=== PATIENT | female | born 1945 | race Caucasian/White ===

== ENCOUNTER 2020-10-10 03:24 | Inpatient (IN) | payer MEDICARE ==
[2020-10-10] MEDS ORDERED: DOPAMINE/D5W 0 MG/0 ML BAG IV ONE (03:53)
[2020-10-10 04:03] LABS: Absolute Lymphocytes (CBC) 7.4 K/uL (0.7-4.9); Basophils % 0.5 % (0-1.3); Hematocrit 42.7 % (36.0-45.0); Lymphocytes % 24.9 % (15.3-44.8); MPV 8.9 fL (7.6-11.3); RBC Red Blood Cell Count 4.18 M/uL (3.86-4.86)
[2020-10-10 04:26] LABS: Albumin 2.8 g/dL (3.4-5.0); Bilirubin Direct 0.1 mg/dL (0-0.2); Bilirubin Total 0.3 mg/dL (0.2-1.0); Protein, Total 6.3 g/dL (6.4-8.2); Troponin (Emerg Dept Use Only) 0.07 ng/mL (0.0-0.045)
[2020-10-10 04:27] LABS: Protime INR 1.08
[2020-10-10 04:32] LABS: Magnesium 2.5 mg/dL (1.8-2.4); Potassium 4.7 mmol/L (3.5-5.1)
[2020-10-10 04:37] LABS: Blood Morphology Comment NOT SEEN (NOT SEEN); Platelet Estimate ADEQ
[2020-10-10 04:54] LABS: Arterial Blood Carboxyhemoglob 3.7 % (0-1.5); Blood Gas Oxyhemoglobin 94.7 % (94-97); Blood O2 Saturation 99.4 % (92-98.5)
--- NOTE | 2020-10-10 06:44 | EDPHYS ---
Physician Documentation [facility] Name: Ellie Herrera Age: 74 yrs Sex: Female : 1945 Arrival Date: 10/10/2020 Time: 03:25 Bed 3 Private MD: ED Physician Henrik Patricio HPI: 10/10 05:18 This 74 yrs old Female presents to ER via EMS with complaints of CPR. tw4 05:18 Preceding the arrest, the patient was found down. The arrest occurred at home. tw4 Pre-hospital course: The arrest was witnessed Bystanders at the scene performed CPR. EMS care prior to arrival: initiation of ACLS, peripheral IV, intubation ACLS details: Initial rhythm was bradycardia. The presenting rhythm is asystole. Airway: oral intubation, Medications given by EMS prior to arrival - Epinephrine IV x 1 doses, Atropine IV x 1 doses. The patient has not experienced similar symptoms in the past. Historical: - Allergies: 04:16 Unable to obtain; lp1 - Home Meds: 04:16 Unable to obtain [Active]; lp1 - PMHx: 04:16 Unable to obtain; lp1 - PSHx: 04:16 Unable to obtain; lp1 - Immunization history:: Adult Immunizations unknown. - Social history:: Smoking status: unknown. - Code Status:: DNAR. ROS: 05:18 Unable to obtain ROS due to comatose state. tw4 Exam: 05:18 Constitutional: The patient appears comatose. tw4 05:18 Eyes: Pupils: are fixed and dilated. 05:18 Cardiovascular: Pulses: Pulses are 2+ in left femoral artery and left carotid pulse. 05:18 Respiratory: intubated. Vital Signs: 03:29 BP 228 / 93; Pulse 128; Resp 19 A; Pulse Ox 96% on 15% BVM; Weight 83.91 kg; lp1 03:35 BP 206 / 69; Pulse 75; Resp 17 A; Pulse Ox 100% on 15% BVM; lp1 03:45 BP 219 / 77; Pulse 68; Resp 15 A; Pulse Ox 100% on 15% BVM; lp1 03:55 BP 246 / 92; Pulse 68; Resp 15 A; Pulse Ox 100% on 15% BVM; lp1 04:10 BP 225 / 98; Pulse 76; Resp 17; Pulse Ox 100% on 100% FiO2 ETT vent; lp1 04:35 BP 227 / 94; Pulse 79; Resp 19; Temp 94.6(C); Pulse Ox 100% on 100% FiO2 ETT vent; lp1 04:55 BP 222 / 94; Pulse 81; Resp 21; Temp 95.3(C); Pulse Ox 100% on 100% FiO2 ETT vent; jb4 05:25 BP 213 / 75; Pulse 75; Resp 16; Temp 95.4(C); Pulse Ox 100% on 100% FiO2 ETT vent; jb4 05:50 BP 205 / 77; Pulse 71; Resp 21; Temp 95.7; Pulse Ox 100% on 100% FiO2 ETT vent; jb4 06:15 BP 211 / 77; Pulse 69; Resp 20; Temp 96.0(C); Pulse Ox 96% on 40% FiO2 ETT vent; jb4 06:40 BP 215 / 75; Pulse 69; Resp 20; Temp 96.3(C); Pulse Ox 94% on 40% FiO2 ETT vent; jb4 07:30 BP 240 / 85; Pulse 73; Resp 21; Temp 97.3; Pulse Ox 96% ; bp MDM: 03:57 Patient medically screened. tw4 10/10 03:49 Order name: Basic Metabolic Panel 1 10/10 03:49 Order name: CBC with Diff; Complete Time: 04:38 1 10/10 04:38 Interpretation: Normal except: WBC 29.8; MCV 102.2; MN% 3.2; MCHC 31.3; NEUT A 21.1; tw4 LYMA 7.4. 10/10 03:49 Order name: LFT's; Complete Time: 04:38 1 10/10 04:38 Interpretation: Normal except: A/G 0.8; ALB 2.8; TP 6.3; ALT 95; AST 151. tw4 10/10 03:49 Order name: Magnesium; Complete Time: 04:38 lp1 10/10 04:38 Interpretation: Normal except: MG 2.5. tw4 10/10 03:49 Order name: NT PRO-BNP; Complete Time: 04:38 1 10/10 04:39 Interpretation: Normal except: NT PRO-BNP 508. tw4 10/10 03:49 Order name: PT-INR; Complete Time: 04:38 [facility] 1212 04:39 Interpretation: Normal except: PT 12.7. tw4 10/10 03:49 Order name: Troponin (emerg Dept Use Only); Complete Time: 04:38 [facility] 10/10 04:39 Interpretation: Normal except: TROPED 0.07. tw4 10/10 03:49 Order name: Basic Metabolic Panel; Complete Time: 04:38 EDMS 10/10 04:39 Interpretation: Normal except: NA 146; CRE 1.82; BUN 28; GLUC 345; CL 110; GFR 27; CA tw4 14.9. 12 03:49 Order name: D-Dimer; Complete Time: 04:38 [facility] 10/10 04:39 Interpretation: Abnormal: D-DIMER [id number]. [facility] 10/10 03:49 Order name: Lactate; Complete Time: 04:38 [facility] 12 04:39 Interpretation: Abnormal: LAC 11.6. 4 10/10 03:49 Order name: Blood Culture Adult (2) [facility] 10/10 04:15 Order name: Manual Differential; Complete Time: 04:38 EDNE 12 04:40 Interpretation: Normal except: BANDS [F] 8. [facility] 10/10 04:37 Order name: ABG; Complete Time: 05:27 [facility] 10/10 04:50 Order name: Glucose, Ancillary Testing; Complete Time: 05:27 EDNE 12 06:15 Order name: SARS-COV-2 RT PCR; Complete Time: 05:49 EDNE 10/10 08:18 Order name: Lactate Sepsis 2 HR Follow-up; Complete Time: 05:49 EDNE 10/10 12:17 Order name: Glucose, Ancillary Testing; Complete Time: 05:49 EDMS 10/10 12:55 Order name: Urinalysis; Complete Time: 05:49 EDMS 10/10 13:00 Order name: Procalcitonin; Complete Time: 05:49 EDMS 12 13:11 Order name: Blood Culture EDNE 10/10 13:16 Order name: Urine Microscopic Only; Complete Time: 05:49 EDMS 10/10 13:40 Order name: Creatine Phosphokinase; Complete Time: 05:49 EDMS 10/10 13:40 Order name: CKMB Creatine Kinase MB; Complete Time: 05:49 EDMS 12/12 13:40 Order name: Troponin I; Complete Time: 05:49 EDMS 1212 18:23 Order name: Glucose, Ancillary Testing; Complete Time: 05:49 EDMS 1212 21:31 Order name: Glucose, Ancillary Testing; Complete Time: 05:49 EDMS 12 23:05 Order name: Creatine Phosphokinase; Complete Time: 05:49 EDMS 12 23:05 Order name: CKMB Creatine Kinase MB; Complete Time: 05:49 EDMS 12 23:05 Order name: Troponin I; Complete Time: 05:49 EDMS 13 04:49 Order name: CBC with Automated Diff; Complete Time: 05:49 EDMS 12 03:49 Order name: XRAY Chest (1 view); Complete Time: 05:49 lp1 12 03:49 Order name: EKG; Complete Time: 03:50 lp1 12 03:49 Order name: Cardiac monitoring; Complete Time: 04:32 lp1 12 03:49 Order name: EKG - Nurse/Tech; Complete Time: 04:32 lp1 12 03:49 Order name: IV Saline Lock; Complete Time: 04:35 lp1 12 03:49 Order name: Labs collected and sent; Complete Time: 04:35 lp1 12 03:49 Order name: O2 Per Protocol; Complete Time: 04:35 lp1 12 03:49 Order name: O2 Sat Monitoring; Complete Time: 04:35 lp1 12 03:49 Order name: Camp; Complete Time: 04:32 lp1 12 16:35 Order name: CT; Complete Time: 05:49 EDMS 12 17:23 Order name: US; Complete Time: 05:49 EDMS 10/11 04:49 Order name: Protime (+INR); Complete Time: 05:49 EDMS 13 05:16 Order name: Comprehensive Metabolic Panel; Complete Time: 05:49 EDMS 10/11 05:16 Order name: Magnesium; Complete Time: 05:49 EDMS 13 08:37 Order name: CT EDMS Administered Medications: 03:27 Drug: EPINEPHrine 0.1mg/mL 1:10,000 1 mg Route: IVP; Site: right antecubital; lp1 04:00 Follow up: Response: No adverse reaction lp1 03:28 Drug: Sodium Bicarbonate 1 amp Route: IVP; Site: right antecubital; lp1 04:00 Follow up: Response: No adverse reaction lp1 03:35 Drug: EPINEPHrine 0.1mg/mL 1:10,000 1 mg Route: IVP; Site: right antecubital; lp1 04:00 Follow up: Response: No adverse reaction lp1 03:35 Drug: Atropine 1 mg Route: IVP; Site: right antecubital; lp1 04:00 Follow up: Response: No adverse reaction lp1 03:45 Drug: Calcium Chloride 1 grams Route: IVP; Site: right antecubital; lp1 04:00 Follow up: Response: No adverse reaction lp1 Disposition: 10/10/20 06:43 Hospitalization ordered by Beny Montejo for Inpatient Admission. Preliminary diagnosis is Cardiac arrest. - Bed requested for [facility] ER HOLD. - Status is Inpatient Admission. jl7 - Condition is Critical. - Problem is an ongoing problem. - Symptoms are unchanged. Signatures: Dispatcher [employer] EDMS Kera Mota, RN RN lp1 Mina Tripathi, PROJECT MANAGER INTERIOR DESIGN-C PROJECT MANAGER INTERIOR DESIGN-Cla1 Norm Beltran RN RN jl7 Andrez Chase RN RN Stanley Loza, RN RN Henrik Alexis MD MD tw4 Corrections: (The following items were deleted from the chart) 14:08 06:43 Hospitalization Ordered by Beny Montejo DO for Inpatient Admission. Preliminary bp diagnosis is Cardiac arrest. Bed requested for Telemetry/MedSurg (Inpatient). Status is Inpatient Admission. Condition is Critical. Problem is an ongoing problem. Symptoms are unchanged. tw4 10/11 12:25 10/10 14:08 10/10/2020 06:43 Hospitalization Ordered by Beny Montejo DO for Inpatient jl7 Admission. Preliminary diagnosis is Cardiac arrest. Bed requested for [facility] ER HOLD. Status is Inpatient Admission. Condition is Critical. Problem is an ongoing problem. Symptoms are unchanged. bp
--- NOTE | 2020-10-10 06:44 | ER ---
Nurse's Notes [facility] Name: Ellie Herrera Age: 74 yrs Sex: Female : 1945 Arrival Date: 10/10/2020 Time: 03:25 Bed 3 Private MD: Diagnosis: Cardiac arrest Presentation: 10/10 03:23 Chief complaint: EMS states: 911 call by patient for chest pain, on arrival of EMS, lp1 patient found unresponsive, cardiac arrest; CPR started at about 0150 by EMS; ROSC x3; On arrival to ED, patient in asystole; Total of x7 Epi, x2 Bicarb, x4 Calcium Chloride administered. 03:23 Care prior to arrival: Oral intubation, CPR via thumper and is still in progress lp1 Medication(s) given: Normal saline infusion, 1000 mL, IV initiated. 18 GA, in the right antecubital area, Glucose check: 161 Oxygen administered. via AMBU bag. Compressions began at 03:23. 03:23 Method Of Arrival: EMS: [facility] lp1 03:23 Acuity: LOUISE 1 lp1 03:25 Acuity: LOUISE 1 dm5 04:32 Coronavirus screen: unable to obtain; intubated patient. Ebola Screen: No symptoms or lp1 risks identified at this time. Initial Sepsis Screen: Does the patient meet any 2 criteria? No. Patient's initial sepsis screen is negative. Does the patient have a suspected source of infection? No. Patient's initial sepsis screen is negative. Risk Assessment: Do you want to hurt yourself or someone else? Unable to obtain. Onset of symptoms was October 10, 2020 at 01:50. Historical: - Allergies: 04:16 Unable to obtain; lp1 - Home Meds: 04:16 Unable to obtain [Active]; lp1 - PMHx: 04:16 Unable to obtain; lp1 - PSHx: 04:16 Unable to obtain; lp1 - Immunization history:: Adult Immunizations unknown. - Social history:: Smoking status: unknown. - Code Status:: DNAR. Screenin:32 Abuse screen: Denies threats or abuse. Denies injuries from another. Nutritional lp1 screening: No deficits noted. Tuberculosis screening: No symptoms or risk factors identified. Fall Risk Total Velásquez Fall Scale indicates High Risk Score (45 or more points). Fall prevention measures have been instituted. Side Rails Up X 2 Placed Close to Nursing Station Frequent Obs/Assessments Occuring. Assessment: 03:23 CPR assessment: unresponsive, no respiratory effort, intubated, Ambu ventilation, pale. lp1 03:25 General: Appears Unresponsive . Behavior is unresponsive. Vomitus noted to MELANIE nares jb4 and in the mouth. . Neuro: Level of Consciousness is unresponsive, Pupils are dilated, non-reactive. Cardiovascular: Rhythm is asystole. Respiratory: Airway via oral intubation. Derm: Skin is intact, Skin is dry, Skin is normal, Skin temperature is cool. 03:29 Cardiac rhythm is Sinus Rhythm. lp1 04:32 Reassessment: Reassessment: PT remains unresponsive. Pupils remain dilated an jb4 unreactive. Pt remains intubated with equal chest rise and fall and bilateral crackles. Is in sinus Rhythm. 05:01 Reassessment: No changes from previously documented assessment. jb4 05:30 Reassessment: Pt remains unresponsive, and intubated with MELANIE crackles and equal chest jb4 rise and fall. Pulse is strong, sinus rhythm. Pupils are dilated, and non-reactive. Provider is speaking with the family at the bedside. 05:44 Reassessment: Spoke with Pt's sone Chandana Herrera. Informed that the pt does have a jb4 living will and power of business analytics analyst. Son states " I am going home to find those documents and will bring them back." Son's contact information is [phone]. 06:00 Reassessment: No changes from previously documented assessment. jb4 06:27 Reassessment: Pt remains unresponsive, and intubated with MELANIE crackles and equal chest jb4 rise and fall. Pulse is strong, sinus rhythm. Pupils are dilated, and non-reactive. Provider is speaking with the family at the bedside. Current Vent settings: A/C 18, PEEP 5.0, FiO2 40%. 07:00 Reassessment: RECD REPORT FROM DREAD GUZMAN. 74YO WF S/P PROLONGED CPR, REMAINS bp NONRESPONSIVE DESPITE ROSC. PT INTUBATED IN FIELD. ADMIT IN PROCESS. PUPILS FIXED AND DILATED. SON IS UNCERTAIN OF CODE STATUS, BUT LOOKING FOR PAPERS AT HOME. 07:30 Reassessment: PER FAMILY, PT HAS OUT OF HOSPITAL DNR. bp 10:00 Reassessment: PT MOVED TO ER HOLD, SEE [facility]. bp 10/11 07:22 Reassessment: Awaiting family arrival, will call Dr. Montejo once family members are jl7 present. 09:37 Reassessment: Nicole Gift case # [id number]. jl7 Vital Signs: 10/10 03:29 BP 228 / 93; Pulse 128; Resp 19 A; Pulse Ox 96% on 15% BVM; Weight 83.91 kg; lp1 03:35 BP 206 / 69; Pulse 75; Resp 17 A; Pulse Ox 100% on 15% BVM; lp1 03:45 BP 219 / 77; Pulse 68; Resp 15 A; Pulse Ox 100% on 15% BVM; lp1 03:55 BP 246 / 92; Pulse 68; Resp 15 A; Pulse Ox 100% on 15% BVM; lp1 04:10 BP 225 / 98; Pulse 76; Resp 17; Pulse Ox 100% on 100% FiO2 ETT vent; lp1 04:35 BP 227 / 94; Pulse 79; Resp 19; Temp 94.6(C); Pulse Ox 100% on 100% FiO2 ETT vent; lp1 04:55 BP 222 / 94; Pulse 81; Resp 21; Temp 95.3(C); Pulse Ox 100% on 100% FiO2 ETT vent; jb4 05:25 BP 213 / 75; Pulse 75; Resp 16; Temp 95.4(C); Pulse Ox 100% on 100% FiO2 ETT vent; jb4 05:50 BP 205 / 77; Pulse 71; Resp 21; Temp 95.7; Pulse Ox 100% on 100% FiO2 ETT vent; jb4 06:15 BP 211 / 77; Pulse 69; Resp 20; Temp 96.0(C); Pulse Ox 96% on 40% FiO2 ETT vent; jb4 06:40 BP 215 / 75; Pulse 69; Resp 20; Temp 96.3(C); Pulse Ox 94% on 40% FiO2 ETT vent; jb4 07:30 BP 240 / 85; Pulse 73; Resp 21; Temp 97.3; Pulse Ox 96% ; bp ED Course: 03:25 Patient arrived in ED. am2 03:25 Maintain EMS IV. Dressing intact. Good blood return noted. Site clean \\T\\ dry. Gauge \\T\\ lp 1 site: 18g to R AC. 03:[address] from EMS, 7.0 ETT at 22 at the teeth. lp1 03:30 Patient has correct armband on for positive identification. Bed in low position. Call lp1 light in reach. Side rails up X2. desk monitor on. Pulse ox on. NIBP on. 03:39 Assisted provider with central line placement. Set up central line tray. Triple lumen lp1 line placed in right femoral. Line placed by Henrik Patricio MD Placement verified by blood return, Dressed with Tegaderm, Blood was collected. Patient tolerated well. 03:45 Arm band placed on. lp1 03:54 NGT: inserted 14 Fr. via left nare. verified placement of air over stomach, verified lp1 return of gastric contents, Placement verified by X-ray, to intermittent suction. Returned gastric contents. 03:55 Henrik Patricio MD is Attending Physician. tw4 04:12 Initiated transfer with Arminda Burns at [facility]. tt3 04:14 Triage completed. dm5 04:20 Mi Greene, RN is Primary Nurse. dm5 04:29 XRAY Chest (1 view) In Process Unspecified. EDMS 04:31 Arminda Posadasumaker called back and stated they had to decline due to capacity. She also tt3 stated that the [facility] and [facility] are at capacity as well. 04:33 3-way catheter inserted, using sterile technique, 16 Fr. oe 04:34 Notified ED physician of a critical lab result(s). D-Dimer [id number]; Lactate 11.6; Calcium lp1 14.9. 04:36 Initiated transfer at [facility] with Tea. tt3 04:58 Freddie Potter, RN is Primary Nurse. jb4 05:15 First set of blood cultures drawn by ri, Second set of blood cultures drawn by lab jb4 staff. 05:54 Tea from [facility] called back and stated she checked all [facility] and they are all at tt3 capacity. 06:08 Initiated with Alison at [facility]. Stated they had no ICU beds. tt3 06:10 Initiated transfer at [facility] with Yessenia. Stated she would check the [facility] and tt3 call back. 06:32 Yessenia from [facility] called back and stated they had to decline due to no ICU beds. Stated that tt3 none of their campuses had ICU beds available and could try checking after 0800. 06:43 Beny Montejo DO is Hospitalizing Provider. tw4 07:35 Primary Nurse role handed off by Freddie Potter, RN bp 07:35 Stanley Nieto, RN is Primary Nurse. bp 10/11 07:00 Patient admitted, IV remains in place. intact, No redness/swelling at site. jl7 07:22 Report received from MEGAN Cote. jl7 Administered Medications: 10/10 03:27 Drug: EPINEPHrine 0.1mg/mL 1:10,000 1 mg Route: IVP; Site: right antecubital; lp1 04:00 Follow up: Response: No adverse reaction lp1 03:28 Drug: Sodium Bicarbonate 1 amp Route: IVP; Site: right antecubital; lp1 04:00 Follow up: Response: No adverse reaction lp1 03:35 Drug: EPINEPHrine 0.1mg/mL 1:10,000 1 mg Route: IVP; Site: right antecubital; lp1 04:00 Follow up: Response: No adverse reaction lp1 03:35 Drug: Atropine 1 mg Route: IVP; Site: right antecubital; lp1 04:00 Follow up: Response: No adverse reaction lp1 03:45 Drug: Calcium Chloride 1 grams Route: IVP; Site: right antecubital; lp1 04:00 Follow up: Response: No adverse reaction lp1 Outcome: 06:43 Decision to Hospitalize by Provider. tw4 10/11 07:00 Admitted to ER Hold. Please see [facility] for further documentation. jl7 critical Discharge instructions given to family, Instructed on the need for admit, Demonstrated understanding of instructions. 12:25 Patient left the ED. jl7 Signatures: Dispatcher [employer] EDMS Mi Greene, RN RN dm5 Kera Mota RN RN lp1 Freddie Potter, RN RN Luis Bañuelos Jahala, RN RN jl7 Shayy Galarza Jose RN RN ja1 Stanley Nieto RN RN bp Wadley, Terrence, MD MD tw4 Dread Davis tt3 Corrections: (The following items were deleted from the chart) 12/12 04:25 03:23 Care prior to arrival: Oral intubation, CPR via thumper and is still in progress lp1 IV initiated. 18 GA, in the right antecubital area, Glucose check: 161 Oxygen administered. via AMBU bag lp1 04:31 03:29 BP 228 / 93; Pulse 128bpm; Resp 22bpm; Assisted; Pulse Ox 92% 02 15% BVM; 83.91 lp1 kg; lp1 04:57 03:25 General: Appears unresponsive. Behavior is unresponsive. Vomitus noted to MELANIE jb4 nares and in the mouth.. dm5 04:57 03:25 Neuro: Level of Consciousness is unresponsive, Pupils are dilated, non-reactive, jb4 dm5 :57 03:25 Cardiovascular: Rhythm is asystole dm5 jb4 57 03:25 Respiratory: Airway via oral intubation dm5 jb4 04:57 03:25 Derm: Skin is intact, Skin is dry, Skin is normal, Skin temperature is cool dm5 jb4 04:57 04:32 Reassessment: PT remains unresponsive. Pupils remain dilated an unreactive. Pt jb4 remains intubated with equal chest rise and fall and bilateral crackles. dm5 06:18 06:10 Initiated transfer at [facility] with Yessenia. tt3 tt3 06:28 05:30 Reassessment: Pt remains unresponsive, and intubated with MELANIE crackles and equal jb4 chest rise and fall. Pulse is strong, sinus rhythm. Pupils are dilated, and non-reactive. Provider is speaking with the family at the bedside. jb4 07:00 03:54 NGT: inserted 14 Fr. via right nare. verified placement of air over stomach, lp1 verified return of gastric contents, Placement verified by X-ray, to intermittent suction. Returned gastric contents. lp1
--- NOTE | 2020-10-10 07:51 | P.HP ---
Certification for Inpatient Patient admitted to: Inpatient With expected LOS: >2 Midnights Patient will require the following post-hospital care: Hospice Practitioner: I am a practitioner with admitting privileges, knowledge of patient current condition, hospital course, and medical plan of care. Services: Services provided to patient in accordance with Admission requirements found in Title 42 Section 412.3 of the Code of Federal Regulations Patient History Date of Service: 10/10/20 Primary Care Provider: Dr. Beltran; Cardiology-Dr. Bustamante Reason for admission: Cardiac arrest History of Present Illness: 74-year-old female with history of diabetes mellitus type 2, hypertension, CAD with prior stents, hyperlipidemia, atrial fibrillation on blood thinner, peripheral vascular disease with prior stents to the lower extremity and kidney, tobacco abuse, and COPD. Most of the history came from the ER physician and staff. I was able to discuss with his son in detail. Son does not know much about the events earlier. Son reports patient had been doing well. Son last saw the patient around [facility]. Son reports patient has significant heart disease. Sees cardiology in [place]-Dr. Bustamante. ER reports patient called EMS due to chest pain. This was around 1:50 a.m. EMS arrived to the house with forced entry. Patient was found unresponsive. Patient was asystole. CPR/ACLS started. Patient intubated in the field. Multiple rounds of medication, CPR performed. Patient had return to circulation in route. Then was since asystole again. By the time she arrived to the hospital there was return of circulation. She arrived at the hospital around 3:23 a.m. In the ER patient had elevated blood pressures 228/93, heart rate 128, respirations 19. Patient placed on ventilator. Patient required CPR again. Now currently stable on ventilator. Vital signs 199/78. Pulse 70. Respirations 15. White count 29.8, hemoglobin 13.4. Platelet count 186. 8 bands, 21 absolute neutrophil count. Lactic acid 11.6. D-dimer elevated at 95,000. Sodium 146, potassium 4.7. Chloride 110, CO2 21. BN of 28, creatinine 1.82 with a GFR of 27. Glucose 342. AST elevated at 151, ALT 95. Troponin 0.07. COVID 19 test negative. Chest x-ray performed. CT head pending. ABG 7.28 pH, P CO2 of 38. Bicarb 17.3. Pupils fixed and dilated. Reflexes to the lower extremity showed no response. Patient does not respond to pain or stimulation. No sedation has been given. Emergency room tried to transfer patient to [facility]. Multiple attempts to multiple facilities were done. No available bed at multiple hospitals. Patient admitted here for further evaluation and treatment. When I saw the patient ER, patient remained on the ventilator. Blood pressure elevated. Vital signs otherwise stable. Patient unresponsive. Spoke with son in detail. Son reports patient has multiple medical problems. She has had stents to the heart, lower extremity, and kidneys. Son also reports patient is on blood thinners. Initial evaluations shows coffee-ground emesis from NG tube. Home medications list reviewed: No - Past Medical/Surgical History Diabetic: Yes -: Diabetes mellitus type 2 -: Hypertension -: Hyperlipidemia -: CAD with prior stents -: Peripheral vascular disease, stents-LE/Kidney -: Atrial fibrillation -: Chronic anti coagulation therapy -: COPD -: Tobacco abuse -: Stents to the heart, lower extremity, kidney Psychosocial/ Personal History: Patient is a . She lives by herself. - Family History Family History: Reviewed- Non-Contributory - Social History Smoking Status: Heavy Tobacco smoker (>10 cigarettes/day) Alcohol use: No CD- Drugs: No Caffeine use: No Place of Residence: Home Review of Systems is unable to be obtained Physical Examination - Physical Exam General: Other (Patient intubated. Patient non sedated. No response to pain, stimuli.) HEENT: Other (Pupils fixed and dilated. NG tube in place. Patient on ventilator.) Neck: Supple Respiratory: Crackles/rales (Crackles bilateral), Expiratory wheezes (Wheezing noted bilateral) Cardiovascular: Regular rate/rhythm Gastrointestinal: Normal bowel sounds, Non-distended Musculoskeletal: Other (Cool extremities. No response to pain or stimuli.) Integumentary: Other (Cool extremities especially to the lower extremity.) Neurological: Other (No upgoing or downgoing reflexes noted. Pupils fixed and dilated.), Abnormal reflexes Other Physical/Emotional Findings: NG tube shows coffee-ground emesis. Stool noted in diaper. - Studies Laboratory Data (last 24 hrs) 10/10/20 03:53: PT 12.7 H, INR 1.08 10/10/20 03:53: WBC 29.8 H*, Hgb 13.4, Hct 42.7, Plt Count 196 10/10/20 03:53: Sodium 146 H, Potassium 4.7, BUN 28 H, Creatinine 1.82 H, Glucose 345 H, Magnesium 2.5 H, Total Bilirubin 0.3, AST 151 H, ALT 95 H, Alkaline Phosphatase 105 Assessment and Plan - Plan Impression: Chest pain secondary to cardiac arrest with asystole, prolonged CPR/ACLS multiple times with return of circulation, acute respiratory failure with hypoxia, suspected aspiration pneumonia, multiorgan failure-liver/kidney, and now suspect anoxic brain injury/encephalopathy Acute respiratory failure with hypoxia suspect aspiration pneumonia with COPD exacerbation Coffee-ground emesis likely related to above with possible GI bleed without anemia Hypertension uncontrolled CAD with prior stents Peripheral vascular disease with prior stents to the lower extremity and kidney Suspected atrial fibrillation on chronic anti coagulation therapy Diabetes mellitus type 2 with hyperglycemia Hyperlipidemia Tobacco abuse Plan: Chest pain secondary to cardiac arrest with asystole, prolonged CPR/ACLS multiple times with return of circulation, acute respiratory failure with hypoxia, suspected aspiration pneumonia, multiorgan failure-liver/kidney, and now suspect anoxic brain injury/encephalopathy: Events reviewed in detail. Patient was to be transferred to [facility] but no beds available. Patient admitted at this time. Will continue with IV fluids. Continue with vent protocol. Will consult pulmonology, cardiology and neurology. Will start IV antibiotic therapy, IV steroid. Respiratory to maintain adequate oxygen status. Will provide IV medication for elevated blood pressure. Will hold off on anti coagulation therapy as coffee-ground emesis noted and patient with history of taking blood thinners. Will need to get a list of her medications from home. Will order echocardiogram, CT head, and EEG. No response to pain stimuli. Pupils fixed and dilated. Suspect anoxic brain injury due to prolonged CPR. Spoke at length with son who understands the patient is in critical condition. Prognosis very poor. Advanced care directives address in detail-30 min. This included advanced directives. Patient now on do not resuscitate. Son reports patient would not want to be in this condition. Will discuss with pulmonology, cardiology and neurology. If no significant improvement or change, will need to consider withdrawal of care. Son will discuss with other family-sister. Await recommendations by specialist. Acute respiratory failure with hypoxia suspect aspiration pneumonia with COPD exacerbation: Will start IV antibiotic therapy. Blood, sputum, urine culture results pending. COVID negative. Will start IV steroids. Will provide medication for COPD. Continue vent protocol. Coffee-ground emesis likely related to above with possible GI bleed without anemia: Will start Protonix. Will need to monitor this closely. Will hold off on anti coagulation therapy due to risk of bleeding. Will monitor blood count closely. Hypertension uncontrolled: Will provide medication IV. CAD with prior stents: Will need to obtain home medication. Peripheral vascular disease with prior stents to the lower extremity and kidney: Monitor electrolytes closely. Electrolyte protocol in place. Suspected atrial fibrillation on chronic anti coagulation therapy: Will need to obtain home medication. Son reports patient on blood thinner. Hold blood thinner at this time due to possible GI bleed. Diabetes mellitus type 2 with hyperglycemia: Will provide sliding scale. Accu- Cheks in place. May need to change IV fluids to D5 normal if blood sugar drops. Acute renal failure likely underlying chronic renal disease stage IV: Will monitor this closely. Will obtain renal ultrasound. Elevated liver function-acute liver failure likely related to above: Will monitor renal function closely. Will obtain liver ultrasound. Hyperlipidemia: Obtain home medication Tobacco abuse: Son reports patient with heavy tobacco abuse. Discharge Plan: Other (Inpatient hospice) Plan to discharge in: Greater than 2 days - Advance Directives Does patient have a Living Will: No Does patient have a Durable POA for Healthcare: No - Code Status/Comfort Care Code Status Assessed: Yes (Patient now DNR) Time Spent Managing Pts Care (In Minutes): 65
--- NOTE | 2020-10-10 09:38 | RAD REPORT ---
EXAM DESCRIPTION: Carla Single View10/10/2020 4:29 am CLINICAL HISTORY: Cardiac arrest COMPARISON: none FINDINGS: Endotracheal tube with its tip 4.5 centimeters above the juliette. Nasogastric tube is pres ent within the stomach. Mild to moderate bilateral interstitial lung opacities probably pulmonary edema. Heart is normal size
[2020-10-10 10:09] VITALS: BMI 30.7
[2020-10-10] MEDS: PANTOPRAZOLE 40 MG INJ IVP SCH ×2 (11:26→21:00)
[2020-10-10] MEDS ORDERED: SODIUM CHLORIDE 0.9% 10ML INJ IV PRN (11:26)
[2020-10-10] MEDS: INSULIN -REGULAR HUMAN 50 UNIT/0.5 ML ML SQ SCH ×4 (11:26→21:00)
[2020-10-10] MEDS: NA CHLORIDE 0.9% 1,000 ML IV SCH ×2 (11:26→21:26)
[2020-10-10] MEDS ORDERED: METOPROLOL TARTRATE 5 MG/5 ML INJ IV PRN (11:26)
[2020-10-10] MEDS ORDERED: VANCOMYCIN 1 GM in NA CHLORIDE 0.9% 500 ML IVPB SCH (11:26)
[2020-10-10] MEDS ORDERED: CEFEPIME 1 GM/VIAL IV SCH (11:26)
[2020-10-10] MEDS ORDERED: ONDANSETRON 4 MG/2 ML VIAL IV PRN (11:26)
[2020-10-10] MEDS: METHYLPREDNISOLONE 40 MG INJ IV SCH (11:26)
[2020-10-10] MEDS ORDERED: IPRATROPIUM BROM 0.5MG/2.5ML NEB PRN (11:26)
[2020-10-10] MEDS ORDERED: ALBUTEROL 2.5 MG/3 ML NEB SOL NEB PRN (11:26)
[2020-10-10] MEDS: ACETAMINOPHEN 650MG/RECT SUPP PR PRN ×2 (11:30→21:36)
--- NOTE | 2020-10-10 11:44 | P.CNS ---
Date of Consult: 10/10/20 Primary Care Provider: Dr. Beltran; Cardiology-Dr. Bustamante Chief Complaint: Cardiac arrest History of Present Illness: Patient is 74 years of age son present at the bedside lives by herself significant history of peripheral vascular disease and coronary artery disease apparently she called 911 was found unresponsive patient had a cardiopulmonary arrest currently patient is intubated stable blood pressure is little elevated in coma probably has significant anoxic encephalopathy Allergies No Known Allergies Allergy (Unverified 10/10/20 09:50) Home Medications: Atorvastatin Calcium 10/10/20 Clopidogrel Bisulfate [Plavix*] 10/10/20 Isosorbide Mononitrate [Isosorbide Mononitrate ER] 10/10/20 Losartan Potassium 10/10/20 - Past Medical/Surgical History Diabetic: Yes -: Diabetes mellitus type 2 -: Hypertension -: Hyperlipidemia -: CAD with prior stents -: Peripheral vascular disease, stents-LE/Kidney -: Atrial fibrillation -: Chronic anti coagulation therapy -: COPD -: Tobacco abuse -: Stents to the heart, lower extremity, kidney Psychosocial/ Personal History: Patient is a . She lives by herself. - Social History Alcohol use: Yes CD- Drugs: No Caffeine use: No Place of Residence: Home Review of Systems is unable to be obtained Physical Examination General: Unresponsive, Comatose Respiratory: Clear to auscultation bilaterally, Diminished Cardiovascular: No edema, Regular rate/rhythm Gastrointestinal: Normal bowel sounds, Soft and benign Laboratory Data (last 24 hrs) 10/10/20 03:53: PT 12.7 H, INR 1.08 10/10/20 03:53: WBC 29.8 H*, Hgb 13.4, Hct 42.7, Plt Count 196 10/10/20 03:53: Sodium 146 H, Potassium 4.7, BUN 28 H, Creatinine 1.82 H, Glucose 345 H, Magnesium 2.5 H, Total Bilirubin 0.3, AST 151 H, ALT 95 H, Alkaline Phosphatase 105 - Problems (1) Cardiac arrest Current Visit: Yes Status: Acute Plan: Patient is 74 years of age smoker with peripheral vascular coronary artery disease multiple medical problems have min admitted with cardiopulmonary arrest currently has multiorgan failure absent plantar responses pupils fixed and dilated labs reviewed white count elevated Discuss with son prognosis poor CT of the head tomorrow morning most likely she has significant anoxic brain damage possible withdrawal of care tomorrow blood pressure elevated presumed brainstem damage patient is on Plavix active smoker prior to this episode patient was living independently very active
[2020-10-10 12:35] LABS: Urine Appearance CLEAR; Urine Bilirubin NEGATIVE (NEG); Urine Blood 3+ (NEG); Urine Color YELLOW; Urine Glucose 2+ (NEG); Urine Protein 2+ (NEG); Urine Urobilinogen 0.2 mg/dL (0.2-1.0)
[2020-10-10] MEDS ORDERED: CEFEPIME/SWI 1gm 10 ML IV SCH (12:45)
[2020-10-10 12:55] LABS: Urine Microscopic Reflex ORDER UMIC
[2020-10-10 13:15] LABS: Urine Amorphous Sediment 2+ /HPF (NONE SEEN); Urine Bacteria <20 /HPF (<20); Urine Mucus 2+ /HPF (NONE SEEN)
[2020-10-10 13:35] LABS: CKMB Creatine Kinase MB 19.8 ng/mL (0.3-3.6); Troponin I 2.35 ng/mL (0.0-0.045)
[2020-10-10] MEDS ORDERED: METHYLPREDNISOLONE 40 MG INJ ONE (13:48)
[2020-10-10] MEDS ORDERED: VANCOMYCIN 1 GM/VIAL ONE (13:48)
[2020-10-10] MEDS ORDERED: NA CHLORIDE 0.9% 250 ML ONE (13:49)
[2020-10-10] MEDS ORDERED: INSULIN -REGULAR HUMAN 50 UNIT/0.5 ML ML ONE (13:49)
[2020-10-10] MEDS ORDERED: CEFEPIME/SWI 1gm 10 ML ONE (13:50)
[2020-10-10] MEDS ORDERED: NA CHLORIDE 0.9% 1,000 ML ONE ×2 (13:50→21:31)
[2020-10-10] MEDS: HYDRALAZINE HCL 20 MG/ML VIAL IV PRN ×2 (15:00→21:35)
[2020-10-10] MEDS ORDERED: VANCOMYCIN 2 GM in NA CHLORIDE 0.9% 500 ML IVPB ONE (15:00)
--- NOTE | 2020-10-10 16:34 | RAD REPORT ---
EXAM DESCRIPTION: CT - Thorax Wo Con - 10/10/2020 4:10 pm CLINICAL HISTORY: Acute respiratory failure COMPARISON: October 10, 2020 chest x-ray TECHNIQUE: Computed axial tomography of the chest was obtained. Contrast was not requested. All CT scans are performed using dose optimization technique as appropriate and may include automated exposure control or mA/KV adjustment according to patient size. FINDINGS: The evaluation of mediastinum, bren and vessels is limited secondary to lack of IV contras t administration. An endotracheal tube has its tip 6 centimeters above juliette. A nasogastric tube is coiled within the gastric fundus Mild to moderate patchy left lower lobe opacities. Minimal right lower lobe opacities. No mediastinal or hilar lymphadenopathy is seen. Minimal pleural effusions. No pericardial effusion. Coronary arterial calcifications IMPRESSION: Mild to moderate left and minimal right lower lobe opacities may represent aspiration pn eumonia
--- NOTE | 2020-10-10 17:23 | RAD REPORT ---
EXAM DESCRIPTION: US - Abdomen Exam Complete - 10/10/2020 5:13 pm CLINICAL HISTORY: Renal and liver failure COMPARISON: none FINDINGS: The liver has a normal echotexture. The pancreas is normal in size and echotexture The right kidney measures 11 centimeters with an increased echotexture. No hydronephrosis Evaluation of spleen, gallbladder and left kidney very limited secondary to difficulty with patient p ositioning The abdominal aorta and inferior vena cava appear unremarkable IMPRESSION: Increased right renal echotexture consistent with parenchymal disease Limited evaluation of the spleen, gallbladder and left kidney
--- NOTE | 2020-10-10 19:13 | CON ---
Reason For Consultation: Consultation called because the patient is unresponsive after cardiopulmona ry arrest. History Of Present Illness: Ms. Herrera is a 74-year-old right-handed patient, who was found unrespon sive, EMS had to break the door to get in. CPR was initiated around 1:05 in the morning on 10/10. S he eventually had 7 rounds of epinephrine, 2 rounds of bicarb, 4 rounds of calcium chloride, and a pr olonged resuscitation, after which eventually a rhythm was established, but a prolonged period of emanuel e, it passed. It is not clearly documented how long the patient was in advanced cardiopulmonary resu scitation. At the time of the ambulance arrival and actually in transport, there was another round o f cardiopulmonary resuscitation prior to regaining cardiac rhythm. At arrival after she was intubate d, pH was 7.28, pCO2 was at 38.4, and pO2 was 459. Her chemistries showed lactic acid was elevated t o 11.6, calcium was 14.9, creatine kinase related to likely her cardiopulmonary resuscitation was joaquim vated to 1052, CK-MB 19, and troponin I was 2.35, sodium up to 146, creatinine 1.82, white blood cell count 29.8, and her chest CT scan showed moderate left and minimal right lobe aspiration pneumonia. CT scan actually not available. Since intubation, the patient has been unresponsive to verbal and t actile stimulation. Pupils have been unresponsive to light actually at around mid position. She is not breathing over the ventilator and no response to noxious stimulation and in discussion with the p yamile's granddaughter and daughter and son, there has been no response to their interaction with the patient. Past Medical History: Diabetes mellitus type 2, hypertension, dyslipidemia, coronary artery disease with multiple stents, peripheral vascular disease, atrial fibrillation on chronic anticoagulation, CO PD, tobacco abuse, and multiple stents to the lower extremity and to the kidney and in the heart. Family History: Noncontributory. Social History: Smokes 10 cigarettes daily. Alcohol not used. No caffeinated beverages use. Allergies: NO KNOWN DRUG ALLERGIES. Medications: Currently, she is receiving cefepime 1 g daily, Brovana nebulizer, albuterol nebulizer, Tylenol suppository, insulin sliding scale, Apresoline 10 mg IV every 6 hours, Zofran 4 mg IV, Lopre ssor 5 mg every 6 hours IV, and normal saline. She is also receiving 1.5 g of vancomycin every 36 ho urs. Review of Systems: Not possible. Physical Examination: Vital Signs: Blood pressure 200/69, pulse 92, respiratory rate 24 up to about 45, temperature 102.2, oxygen saturation mechanically ventilated at 93%, FiO2 of 40. Weight 185 pounds, height 5 feet 5 in ches, BMI 30.8. Neurologic: Ms. Herrera is intubated, unresponsive to any form of stimulation including noxious stim above the eyes and sternal rub and ankle pressure in the extremities. No response to verbal stimulat ion. She is not breathing over the ventilator. She has no visual threat response. She has no doll' s eye response. No corneal response. She has normal tone in the upper and lower extremities. No tr emors or stiffness noted. Reflexes are depressed and symmetric. She has no voluntary movements. Un able to assess any coordination, strength, or gait. Assessment: Ms. Herrera is a 74-year-old patient, who has no evidence of brainstem function after pro longed cardiopulmonary resuscitation. She has multiple comorbid conditions, diabetes mellitus, hyper tension as well as chronic kidney disease, coronary artery disease with multiple stents, peripheral v ascular disease, atrial fibrillation, chronic obstructive pulmonary disease, and tobacco dependency. All of her conditions are not clear. Prognosis was discussed with the patient's son and granddaught er and the absence of brain function, which is consistent with brain was discussed with the pat rosant's family and they are deciding on withdrawal of supportive care. At this point, that is the rec ommendation as there is no meaningful function in the patient given the absence of brain stem activit y. This also was discussed with the patient's hospitalist and Dr. Montejo and the hospitalist covering fo r him as well. AMISH/LINDSEY Voice ID: [id number] Report ID: [id number]
[2020-10-10] MEDS ORDERED: ARFORMOTEROL TARTRATE 15 MCG/2 ML VIAL.NEB ONE (20:13)
[2020-10-10 21:03] VITALS: O2SAT 96
[2020-10-10] MEDS ORDERED: ACETAMINOPHEN 650MG/RECT SUPP PR ONE (21:30)
[2020-10-10] MEDS ORDERED: PANTOPRAZOLE 40 MG INJ ONE (21:30)
[2020-10-10] MEDS: ARFORMOTEROL TARTRATE 15 MCG/2 ML VIAL.NEB NEB SCH (21:40)
[2020-10-10] MEDS ORDERED: HYDRALAZINE HCL 20 MG/ML VIAL ONE (21:47)
[2020-10-10] MEDS ORDERED: METOPROLOL TARTRATE 5 MG/5 ML INJ IV ONE (21:47)
[2020-10-10 23:04] LABS: CKMB Creatine Kinase MB 7.3 ng/mL (0.3-3.6)
[2020-10-10 23:05] LABS: Troponin I 1.41 ng/mL (0.0-0.045)
[2020-10-11] MEDS: METHYLPREDNISOLONE 40 MG INJ IV SCH (01:00)
[2020-10-11] MEDS ORDERED: Nicardipine/NS 25 MG/250 ML KIT IV ONE (01:51)
[2020-10-11] MEDS ORDERED: Nicardipine in Saline, Iso-Osm 20 MG/200 ML IV.SOLN. IV PRN (01:55)
[2020-10-11] MEDS: ACETAMINOPHEN 650MG/RECT SUPP PR PRN (02:52)
[2020-10-11] MEDS ORDERED: METHYLPREDNISOLONE 40 MG INJ ONE (02:53)
[2020-10-11] MEDS ORDERED: ACETAMINOPHEN 650MG/RECT SUPP PR ONE (02:53)
[2020-10-11 04:45] LABS: Basophils % 0.2 % (0-1.3); Hematocrit 43.8 % (36.0-45.0); Lymphocytes % 6.6 % (15.3-44.8); MPV 9.1 fL (7.6-11.3); RBC Red Blood Cell Count 4.51 M/uL (3.86-4.86)
[2020-10-11 04:49] LABS: Protime INR 1.29
[2020-10-11 05:00] LABS: Albumin 3.3 g/dL (3.4-5.0); Bilirubin Total 0.9 mg/dL (0.2-1.0); Magnesium 1.8 mg/dL (1.8-2.4); Potassium 4.2 mmol/L (3.5-5.1); Protein, Total 7.2 g/dL (6.4-8.2)
[2020-10-11] MEDS ORDERED: NA CHLORIDE 0.9% 1,000 ML ONE (05:13)
[2020-10-11] MEDS ORDERED: MAGNESIUM SULFATE 1 gm IVPB 1 GM/100 ML BAG IV ONE ×2 (06:04→06:30)
[2020-10-11 06:14] VITALS: BP 181/70; TEMP 101.5
--- NOTE | 2020-10-11 07:13 | P.PN ---
Subjective Date of Service: 10/11/20 Primary Care Provider: Dr. Beltran; Cardiology-Dr. Bustamante Chief Complaint: Cardiac arrest Subjective: Other (Patient has been hyperthermic. Still no response or change since yesterday. Patient remains intubated.) Physical Examination - Vital Signs Temperature: 101.5 F Blood Pressure: 181/70 Pulse: 114 Respirations: 50 Pulse Ox (%): 100 - Physical Exam General: Other (Patient remains intubated. No sedation required. Patient w ithout and response to pain, stimuli.) Respiratory: Crackles/rales (Bilateral) Cardiovascular: Abnormal pulses (Sinus tachycardia rate around 115) Gastrointestinal: Soft and benign Neurological: Other (No response to pain or stimuli. No upgoing or downgoing reflexes to the feet) Other Physical/Emotional Findings: NG tube shows coffee-ground emesis. Stool noted in diaper. - Studies Medications List Reviewed: Yes Assessment & Plan Discharge Plan: Other (Hospice) Plan to discharge in: 24 Hours Physician Review Additional Text: Impression: Chest pain secondary to cardiac arrest with asystole/NSTEMI status post prolonged CPR/ACLS multiple times with return of circulation now with suspected brain stem injury/anoxic encephalopathy complicated with acute respiratory failure with hypoxia secondary to right long aspiration pneumonia and multiorgan failure-liver/kidney Coffee-ground emesis likely related to above with possible GI bleed without anemia Hypertension uncontrolled CAD with prior stents Peripheral vascular disease with prior stents to the lower extremity and kidney History of atrial fibrillation on chronic anti coagulation therapy Diabetes mellitus type 2 with hyperglycemia Acute on chronic renal failure stage IV with hypernatremia Hyperthermia likely related to brainstem injury Elevated liver function-acute liver failure likely related to above Hyperlipidemia Tobacco abuse Plan: Chest pain secondary to cardiac arrest with asystole/NSTEMI status post prolonged CPR/ACLS multiple times with return of circulation now with suspected brain stem injury/anoxic encephalopathy complicated with acute respiratory failure with hypoxia secondary to right long aspiration pneumonia and multiorgan failure-liver/kidney: Patient still without any significant change. No response to stimuli, pain. Patient requiring Cardene drip for blood pressure control. Case discussed with cardiology. Cardiology suspects patient had NSTEMI. Neurology suspects brainstem injury and anoxic encephalopathy. Case also discuss with pulmonology. CT head obtained. Await results. Suspect will see edema indicating significant brain injury from anoxic brain injury after prolonged CPR-ACLS. Case had been discussed in detail with son. He was going to talk to the rest of the family about plan of care. Family likely to withdrawal care today due to patient's critical status with poor prognosis. Patient remains DNR. Will discuss with family this morning. Will also discuss with other specialists for other recommendations. Continue current medications at this time. Coffee-ground emesis likely related to above with possible GI bleed without anemia: Patient on Protonix. Will provide heparin DVT prophylaxis. Hypertension uncontrolled: Patient now on Cardene drip CAD with prior stents: Patient previously on Plavix.. Peripheral vascular disease with prior stents to the lower extremity and kidney: Monitor electrolytes closely. Electrolyte protocol in place. History of atrial fibrillation on chronic anti coagulation therapy: Will need to confirm with family. Patient was taking Plavix. Diabetes mellitus type 2 with hyperglycemia: Will provide sliding scale. Accu- Cheks in place. Will change to D5 W due to hypernatremia. Acute on chronic renal failure stage IV with hypernatremia: Change to D5 W. evidence of chronic renal failure noted on ultrasound. Elevated liver function-acute liver failure likely related to above : Liver function remains elevated. Liver ultrasound shows fatty liver. Hyperthermia likely related to brain stem injury: Suspect brainstem injury. Continue as above. Hyperlipidemia: Patient previously on cholesterol medication. Tobacco abuse: Son reports patient with heavy tobacco abuse. Time Spent Managing Pts Care (In Minutes): 55
[2020-10-11] MEDS: ARFORMOTEROL TARTRATE 15 MCG/2 ML VIAL.NEB NEB SCH ×2 (08:00→20:00)
[2020-10-11] MEDS ORDERED: D5W 1,000 ML IV SCH (08:00)
--- NOTE | 2020-10-11 08:36 | RAD REPORT ---
EXAM DESCRIPTION: CT - Head Brain Wo Cont - 10/11/2020 5:47 am CLINICAL HISTORY: Acute respiratory failure status post cardiac arrest, intubation COMPARISON: Thorax Wo Con dated 10/10/2020 TECHNIQUE: Axial 5 mm thick images of the head were obtained without IV contrast. All CT scans are performed using dose optimization technique as appropriate and may include automated exposure control or mA/KV adjustment according to patient size. FINDINGS: No intracranial hemorrhage is confirmed. The 2 centimeter focus anterior right middle cran ial fossa adjacent the dura is slightly hyperdense relative to adjacent brain parenchyma (43 v 34 Sofy nsfield units). There is loss vanegas matter - white matter differentiation throughout each cerebral hem isphere and probably within each cerebellar hemisphere as well. Posterior fossa assessment is inheren tly limited. Sulci are partially effaced. A few patchy areas decreased attenuation are scattered in t he cerebral white matter. Wedge shaped areas of diminished attenuation are present in each occipital lobe. Ventricles are small but not fully effaced. Physiologic calcifications are present. There is no midline shift. No abnormal extra-axial fluid collections. Dural venous sinuses are slightly hyperdense but not definitive for venous sinus thrombosis. Mastoid air cells are clear. Mucosal thickening and air-fluid levels are scattered throughout paranas al sinuses, not uncommon in intubated patients. No acute bony findings. IMPRESSION: Diffuse anoxic brain injury pattern. Relative hyperdensity of the dural venous sinuses and scattered areas of focal diminished attenuation scattered in the cerebral hemispheres raise possibility of dural venous sinus thrombosis and venous infarction. Collective findings favor that brain parenchymal injuries are primarily due to disruption of arterial supply.
[2020-10-11] MEDS ORDERED: HEPARIN 5000 UNIT/ML 1 ML VIAL SQ SCH (09:00)
[2020-10-11] MEDS ORDERED: LORazepam 2 MG/ML VIAL ONE (10:55)
[2020-10-11] MEDS ORDERED: MORPHINE 4 MG/ML SYR ONE (11:15)
--- NOTE | 2020-10-11 11:59 | P.DS ---
Admission Date: 10/10/20 Discharge Date: 10/11/20 Primary Care Provider: Dr. Beltran; Cardiology-Dr. Bustamante Disposition: Discharge Condition: Reason for Admission: Cardiac arrest Consultations: Cardiology-Dr. Gant Pulmonary-Dr. Henson Neurology-Dr. Basilio Procedures: CT Scan: FINDINGS: The evaluation of mediastinum, bren and vessels is limited secondary to lack of IV contrast administration. An endotracheal tube has its tip 6 centimeters above juliette. A nasogastric tube is coiled within the gastric fundus Mild to moderate patchy left lower lobe opacities. Minimal right lower lobe opacities. No mediastinal or hilar lymphadenopathy is seen. Minimal pleural effusions. No pericardial effusion. Coronary arterial calcifications IMPRESSION: Mild to moderate left and minimal right lower lobe opacities may represent aspiration pneumonia CT Scan: FINDINGS: No intracranial hemorrhage is confirmed. The 2 centimeter focus anterior right middle cranial fossa adjacent the dura is slightly hyperdense relative to adjacent brain parenchyma (43 v 34 Hounsfield units). There is loss vanegas matter - white matter differentiation throughout each cerebral hemisphere and probably within each cerebellar hemisphere as well. Posterior fossa assessment is inherently limited. Sulci are partially effaced. A few patchy areas decreased attenuation are scattered in the cerebral white matter. Wedge shaped areas of diminished attenuation are present in each occipital lobe. Ventricles are small but not fully effaced. Physiologic calcifications are present. There is no midline shift. No abnormal extra-axial fluid collections. Dural venous sinuses are slightly hyperdense but not definitive for venous sinus thrombosis. Mastoid air cells are clear. Mucosal thickening and air-fluid levels are scattered throughout paranasal sinuses, not uncommon in intubated patients. No acute bony findings. IMPRESSION: Diffuse anoxic brain injury pattern. Relative hyperdensity of the dural venous sinuses and scattered areas of focal diminished attenuation scattered in the cerebral hemispheres raise possibility of dural venous sinus thrombosis and venous infarction. Collective findings favor that brain parenchymal injuries are primarily due to disruption of arterial supply. 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- venous infarction complicated with acute respiratory failure with hypoxia secondary to right long aspiration pneumonia and multiorgan failure-liver/kidney Coffee-ground emesis likely related to above with possible GI bleed without anemia Hypertension uncontrolled CAD with prior stents Peripheral vascular disease with prior stents to the lower extremity and kidney History of atrial fibrillation on chronic anti coagulation therapy Diabetes mellitus type 2 with hyperglycemia Acute on chronic renal failure stage IV with hypernatremia 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 Most of the history came from the ER physician and staff. I was able to discuss with his son in detail. Son does not know much about the events earlier. Son reports patient had been doing well. Son last saw the patient around . Son reports patient has significant heart disease. Sees [facility] in [place]-Dr. Bustamante. ER reports patient called EMS due to chest pain. This was around 1:50 a.m. EMS arrived to the house with forced entry. Patient was found unresponsive. Patient was asystole. CPR/ACLS started. Patient intubated in the field. Multiple rounds of medication, CPR performed. Patient had return to circulation in route. Then was since asystole again. By the time she arrived to the hospital there was return of circulation. She arrived at the hospital around 3:23 a.m. In the ER patient had elevated blood pressures 228/93, heart rate 128, respirations 19. Patient placed on ventilator. Patient required CPR again. Now currently stable on ventilator. Vital signs 199/78. Pulse 70. Respirations 15. White count 29.8, hemoglobin 13.4. Platelet count 186. 8 bands, 21 absolute neutrophil count. Lactic acid 11.6. D-dimer elevated at 95,000. Sodium 146, potassium 4.7. Chloride 110, CO2 21. BN of 28, creatinine 1.82 with a GFR of 27. Glucose 342. AST elevated at 151, ALT 95. Troponin 0.07. COVID 19 test negative. Chest x-ray performed. CT head pending. ABG 7.28 pH, P CO2 of 38. Bicarb 17.3. Pupils fixed and dilated. Reflexes to the lower extremity showed no response. Patient does not respond to pain or stimulation. No sedation has been given. Emergency room tried to transfer patient to [facility]. Multiple attempts to multiple facilities were done. No available bed at multiple hospitals. Patient admitted here for further evaluation and treatment. When I saw the patient ER, patient remained on the ventilator. Blood pressure elevated. Vital signs otherwise stable. Patient unresponsive. Spoke with son in detail. Son reports patient has multiple medical problems. She has had stents to the heart, lower extremity, and kidneys. Son also reports patient is on blood thinners. Initial evaluations shows coffee-ground emesis from NG tube. Hospital Course: Patient presented to the ER by EMS after calling 911 for chest pain. EMS came to the house with forced entry. Patient was found unresponsive with asystole. CPR/ACLS initiated. Patient was intubated in the field. Patient had prolonged CPR with multiple times of return to circulation. By the time the patient arrived to the ER patient was intubated. Blood pressures were elevated. An attempt to transfer to multiple facilities failed due to lack of capacity. Patient was admitted with cardiac arrest with asystole/NSTEMI status post prolonged CPR/ACLS multiple times with return to circulation with brainstem injury/anoxic encephalopathy complicated with acute respiratory failure secondary to right lung aspiration pneumonia and multiorgan failure including liver and kidney. During the course of her stay her condition did not change. Prognosis was poor. Pulmonology, cardiology and Neurology were consulted. Case was discussed in detail with the son who made the patient DNR. Pulmonology, neurology and Cardiology recommended withdrawal of care due to her poor prognosis. Patient's neuro status was severely compromised. This was confirmed with CT scan of the brain. It showed diffuse brain injury with likely dural venous sinus thrombosis and venous infarction. After long discussion with family, they understood that her condition was poor including diagnosis of anoxic brain injury. Family has decided to withdrawal care. This was done appropriately. Patient . May she rest in peace. Vital Signs/Physical Exam: Temp Pulse Resp BP Pulse Ox 101.5 F H 114 H 50 H 181/70 H 100 10/11/20 07:18 10/11/20 07:18 10/11/20 07:18 10/11/20 07:18 10/11/20 07:18 Patient Other Physical/Emotional Findings: NG tube shows coffee-ground emesis. Stool noted in diaper. Laboratory Data at Discharge: WBC 30.6 K/uL (4.3-10.9) H* 10/11/20 04:29 Hgb 14.7 g/dL (12.0-15.0) 10/11/20 04:29 Hct 43.8 % (36.0-45.0) 10/11/20 04:29 Plt Count 222 K/uL (152-406) 10/11/20 04:29 PT 15.1 SECONDS (9.5-12.5) H 10/11/20 04:29 INR 1.29 10/11/20 04:29 Sodium 150 mmol/L (136-145) H 10/11/20 04:29 Potassium 4.2 mmol/L (3.5-5.1) 10/11/20 04:29 BUN 50 mg/dL (7-18) H D 10/11/20 04:29 Creatinine 2.03 mg/dL (0.55-1.3) H 10/11/20 04:29 Glucose 184 mg/dL (74-106) H 10/11/20 04:29 Magnesium 1.8 mg/dL (1.8-2.4) D 10/11/20 04:29 Total Bilirubin 0.9 mg/dL (0.2-1.0) 10/11/20 04:29 AST 119 U/L (15-37) H 10/11/20 04:29 ALT 120 U/L (12-78) H 10/11/20 04:29 Alkaline Phosphatase 91 U/L (45-117) 10/11/20 04:29 Troponin I 1.41 ng/mL (0.0-0.045) H* 10/10/20 22:20 Home Medications: Atorvastatin Calcium 10/10/20 Clopidogrel Bisulfate [Plavix*] 10/10/20 Isosorbide Mononitrate [Isosorbide Mononitrate ER] 10/10/20 Losartan Potassium 10/10/20 Patient Discharge Instructions: Patient . May she rest in peace. Followup: Rigoberto Beltran MD [Primary Care Provider] - Time spent managing pt's care (in minutes): 55
[2020-10-11] MEDS ORDERED: EPINEPHrine 1 MG/10 ML SYR IV ONE (12:44)
[2020-10-11] MEDS ORDERED: Caclcium Chloride 10% INJ SYR IV ONE (12:44)
[2020-10-11] MEDS ORDERED: ENOXAPARIN 40 MG/0.4 ML SQ ONE (14:59)
[2020-10-12] MEDS ORDERED: VANCOMYCIN 1.5 GM in NA CHLORIDE 0.9% 500 ML IVPB SCH (03:00)
== END 2020-10-11 12:45 | disposition expired ==
LOC: ER 03:24 → ERHOLD 07:22
PROVIDERS: ADMIT Family Medicine; ATTEND Hospitalist
PROC: 06HY33Z Insertion of Infusion Device into Lower Vein, Percutaneous Approach (ICD-10-PCS; principal; 2020-10-10)
PROC: 5A12012 Performance of Cardiac Output, Single, Manual (ICD-10-PCS; 2020-10-10)
PROC: 5A1935Z Respiratory Ventilation, Less than 24 Consecutive Hours (ICD-10-PCS; 2020-10-10)
DX: I21.4 Non-ST elevation (NSTEMI) myocardial infarction (principal); J96.01 Acute respiratory failure with hypoxia; J69.0 Pneumonitis due to inhalation of food and vomit; K72.00 Acute and subacute hepatic failure without coma; N17.9 Acute kidney failure, unspecified; S06.389A Contusion, laceration, and hemorrhage of brainstem with loss of consciousness of unspecified duration, initial encounter; G93.1 Anoxic brain damage, not elsewhere classified; J44.1 Chronic obstructive pulmonary disease with (acute) exacerbation; K92.2 Gastrointestinal hemorrhage, unspecified; E87.0 Hyperosmolality and hypernatremia; N18.4 Chronic kidney disease, stage 4 (severe); I12.9 Hypertensive chronic kidney disease with stage 1 through stage 4 chronic kidney disease, or unspecified chronic kidney disease; I46.9 Cardiac arrest, cause unspecified; E11.22 Type 2 diabetes mellitus with diabetic chronic kidney disease; E11.51 Type 2 diabetes mellitus with diabetic peripheral angiopathy without gangrene; E11.65 Type 2 diabetes mellitus with hyperglycemia; I48.91 Unspecified atrial fibrillation; E78.5 Hyperlipidemia, unspecified; F17.210 Nicotine dependence, cigarettes, uncomplicated; I25.10 Atherosclerotic heart disease of native coronary artery without angina pectoris; Z95.5 Presence of coronary angioplasty implant and graft; Z79.01 Long term (current) use of anticoagulants; Z60.2 Problems related to living alone; Z66 Do not resuscitate; Z79.02 Long term (current) use of antithrombotics/antiplatelets; Z79.899 Other long term (current) drug therapy; Z20.828 Contact with and (suspected) exposure to other viral communicable diseases
CPT/HCPCS: 36415; 70450; 71045; 71250; 76700; 80048; 80053; 80076; 81003; 81015; 82550; 82553; 82805; 82947; 83605; 83735; 83880; 84145; 84484; 85025; 85379; 85610; 87040; 92950; 93005; 94002; 94003; 94640; 96374; 96375; 99291; 99292; C9113; J0171; J0360; J0692; J1265; J1650; J2920; J3370; J3475; J7030; J7040; J7050; J7605; U0003